=== PATIENT | male | born 1975 | race Caucasian/White ===

== ENCOUNTER → 2016-08-07 | Outpatient (CLI) | payer BC ==
[~2016-08-07] MED LIST: HYDR-1372 PO; [UNRECOGNIZED DRUG - CODE] PO
--- NOTE | 2016-08-07 11:20 | DI ---
EXAM: FOOT LEFT 3 VIEWS COMPARISON: None available. HISTORY: ITS.REASON: M79.672 PAIN IN LEFT FOOT . FINDINGS: There is a linear radiopaque foreign body measuring approximately 1 mm x 1 cm at the plantar soft tissues at the level of the proximal phalanx of the fourth toe. There is no evidence for acute fracture, subluxation, or dislocation. There is minimal plantar calcaneal spurring. Articular surfaces are smooth. There is mild degenerative changes of the first metatarsal phalangeal joint. IMPRESSION: 1. No evidence for acute fracture identified. 2. There is a linear 1 mm x 1 cm radiopaque foreign body seen projecting over the plantar soft tissues at the level of the proximal phalanx of the fourth toe. This appears to be a needle or wire. Its possible this could also be laying on the patient. 3. Mild degenerative changes of first metatarsophalangeal joint with joint space narrowing and minimal spurring. 4. Minimal plantar calcaneal spurring. LOCATION OF DICTATION: [facility] [place] .
== END ==
LOC: IMA 09:46
PROVIDERS: ATTEND Family Medicine
DX: M79.672 Pain in left foot (principal); M19.072 Primary osteoarthritis, left ankle and foot; M79.5 Residual foreign body in soft tissue